=== PATIENT | female | born 1975 | race Caucasian/White ===

== ENCOUNTER → 2017-11-20 | Outpatient (CLI) | payer MEDICARE ==
[~2017-11-20] MED LIST: ACETAMINOPHEN-1 EAC1 PO; AMOXICILLIN 50500 M1 PO; COMPAZINE10 MG PO; DERMOPLAST SPRA56 ML; IBUPROFEN 600600 M1; KEFLEX500 MG PO; MACROBID 100 M100 M1 PO; MONISTAT 745 GM VG; NORCO 5-325 TA1 EACH; PHENERGAN 25 MG25 M1 PO; PRENATAL; PRENATAL COMPL1 EACH; PROZAC20 MG PO; REGLAN 10 MG TA10 MG PO; TRAZODONE HCL100 MG PO; TUCKS MEDICATE1 EAC1; ZOFRAN4 MG; ZPAK PO
== END ==
LOC: M.CT 15:00
DX: Z09 Encounter for follow-up examination after completed treatment for conditions other than malignant neoplasm (principal); N20.0 Calculus of kidney; N85.2 Hypertrophy of uterus; Z87.442 Personal history of urinary calculi

== ENCOUNTER 2019-07-02 21:22 | Emergency (ER) | payer OTHER ==
[~2019-07-02] VITALS: Ht 160 cm; Wt 57.1 kg
[2019-07-02 21:30] VITALS: BP 132/69
[2019-07-02] MEDS ORDERED: XOFLUZA20 MG PO (21:33)
[2019-07-02] MEDS ORDERED: TRAMADOL 50 MG50 MG PO (21:43)
== END 2019-07-02 21:48 | disposition home or self-care (01) ==
LOC: M.ERS 21:22
DX: B34.9 Viral infection, unspecified (principal); F17.210 Nicotine dependence, cigarettes, uncomplicated; Z98.890 Other specified postprocedural states; Z88.1 Allergy status to other antibiotic agents; Z88.0 Allergy status to penicillin; Z91.040 Latex allergy status

== ENCOUNTER 2019-08-27 11:03 | Emergency (ER) | payer OTHER ==
[~2019-08-27] VITALS: Ht 160 cm; Wt 57.1 kg
[~2019-08-27 11:03] MED LIST changes: +TRAMADOL 50 MG50 MG PO; +XOFLUZA20 MG PO
[2019-08-27] MEDS ORDERED: NORCO 5-325 TA1 EAC1 PO (11:33)
[2019-08-27] MEDS ORDERED: ZANAFLEX4 MG PO (11:33)
[2019-08-27] MEDS ORDERED: NAPROSYN500 MG PO (11:33)
[2019-08-27 11:41] VITALS: BP 132/92
== END 2019-08-27 11:42 | disposition left against medical advice (07) ==
LOC: M.ERS 11:03
DX: M54.5 Low back pain (principal); F17.210 Nicotine dependence, cigarettes, uncomplicated; Z98.890 Other specified postprocedural states; Z88.1 Allergy status to other antibiotic agents; Z88.0 Allergy status to penicillin; Z91.040 Latex allergy status

== ENCOUNTER 2019-10-07 13:01 | Emergency (ER) | payer OTHER ==
[~2019-10-07] VITALS: Ht 160 cm; Wt 61.7 kg
[~2019-10-07 13:01] MED LIST changes: +NAPROSYN500 MG PO; +NORCO 5-325 TA1 EAC1 PO; +ZANAFLEX4 MG PO
[2019-10-07 13:47] LABS: URINE BLOOD 3+ (Negative); URINE CLARITY CLOUDY; URINE COLOR RED; URINE GLUCOSE-RANDOM NEGATIVE (Negative); URINE KETONES NEGATIVE (Negative); URINE LEUKOCYTES-REFLEX 1+ (Negative); URINE NITRITE-REFLEX NEGATIVE (Negative); URINE PROTEIN 2+ (Negative); URINE SPECIFIC GRAVITY 1.025 (1.005-1.030); URINE UROBILINOGEN 0.2 E.U./dl (0.2-1.0)
[2019-10-07 13:49] LABS: ICTOTEST (BILI CONFIRMATORY) Negative (Negative); URINE BILIRUBIN 1+ (Negative)
[2019-10-07 13:54] LABS: SQUAMOUS 4-10 Moderate /LPF (0-3); URINE RBC >20 Many /HPF (0-2); URINE WBC-REFLEX None Seen /HPF (0-5)
[2019-10-07 13:55] LABS: BACTERIA-REFLEX None Seen /HPF (None Seen); CASTS None Seen /LPF (None Seen); CRYSTALS None Seen /LPF (None Seen); MUCUS 0-3 Light strn/LPF (None Seen)
[2019-10-07 14:00] LABS: ABSOLUTE BASOPHILS 0.1 thou/uL (0.0-0.2); ABSOLUTE EOSINOPHILS 0.5 thou/uL (0.0-0.7); ABSOLUTE LYMPHOCYTES 2.1 thou/uL (0.8-5.3); ABSOLUTE NEUTROPHILS 5.6 thou/uL (1.6-8.1); BASOPHILS 0.6 %; EOSINOPHILS 5.2 %; HEMOGLOBIN 12.4 gm/dL (12.0-15.0); MCH 28.1 pg (26.0-34.0); MCHC 33.4 g/dL (28.0-37.0); MONOCYTES 10.8 %; MPV 7.1 fl. (7.2-11.1); NUCLEATED RBCS 0 /100WBC; PLATELET COUNT* 407 thou/uL (150-400); POLYS 60.4 %; RDW-CV 16.2 % (10.5-14.5); WBC 9.2 thou/uL (4.0-11.0)
[2019-10-07 14:09] LABS: CALCIUM 8.5 mg/dL (8.5-10.1); CREATININE 0.6 mg/dL (0.6-1.3); POTASSIUM 3.7 mmol/L (3.5-5.1)
[2019-10-07 14:13] LABS: ALBUMIN 3.3 g/dL (3.4-5.0); TOTAL BILIRUBIN 0.2 mg/dL (<0.1-1.0); TOTAL PROTEIN 7.2 g/dL (6.4-8.2)
[2019-10-07 15:33] VITALS: BP 120/72
== END 2019-10-07 15:34 | disposition home or self-care (01) ==
LOC: M.ERS 13:01
PROVIDERS: Physician Assistant
DX: O20.0 Threatened abortion (principal); F17.210 Nicotine dependence, cigarettes, uncomplicated; Z98.890 Other specified postprocedural states; Z3A.00 Weeks of gestation of pregnancy not specified; Z91.040 Latex allergy status; Z88.0 Allergy status to penicillin; Z88.1 Allergy status to other antibiotic agents

== ENCOUNTER 2019-11-19 18:25 | Emergency (ER) | payer OTHER ==
[~2019-11-19] VITALS: Ht 160 cm; Wt 59.0 kg
[2019-11-19] MEDS ORDERED: CELEXA 20 MG TA20 MG PO (18:48)
[2019-11-19] MEDS ORDERED: ZANAFLEX4 MG PO (20:51)
[2019-11-19] MEDS ORDERED: IBUPROFEN 600600 M1 PO (20:51)
[2019-11-19] MEDS ORDERED: CENTANY30 GM TOP (20:51)
[2019-11-19] MEDS ORDERED: DOXYCYCLINE 10100 MG PO (21:06)
[2019-11-19 21:25] VITALS: BP 153/92
== END 2019-11-19 21:25 | disposition home or self-care (01) ==
LOC: M.ERS 18:25
DX: S09.90XA Unspecified injury of head, initial encounter (principal); S61.411A Laceration without foreign body of right hand, initial encounter; S16.1XXA Strain of muscle, fascia and tendon at neck level, initial encounter; S20.212A Contusion of left front wall of thorax, initial encounter; S20.211A Contusion of right front wall of thorax, initial encounter; S70.02XA Contusion of left hip, initial encounter; S70.01XA Contusion of right hip, initial encounter; S00.83XA Contusion of other part of head, initial encounter; S60.211A Contusion of right wrist, initial encounter; F17.210 Nicotine dependence, cigarettes, uncomplicated; Z98.890 Other specified postprocedural states; Z91.040 Latex allergy status; Z88.0 Allergy status to penicillin; Z88.1 Allergy status to other antibiotic agents; Y04.0XXA Assault by unarmed brawl or fight, initial encounter; Y93.89 Activity, other specified; Y92.89 Other specified places as the place of occurrence of the external cause; Y99.8 Other external cause status

== ENCOUNTER 2021-02-20 02:31 | Emergency (ER) | payer OTHER ==
[~2021-02-20] VITALS: Ht 160 cm; Wt 64.9 kg
[~2021-02-20 02:31] MED LIST changes: +CELEXA 20 MG TA20 MG PO; +CENTANY30 GM TOP; +DOXYCYCLINE 10100 MG PO; +IBUPROFEN 600600 M1 PO
[2021-02-20 02:45] VITALS: BP 159/98
[2021-02-20] MEDS ORDERED: HYDROXYZINE HCL25 M2 PO (02:48)
[2021-02-20] MEDS ORDERED: PROZAC 10 MG CA10 MG PO (02:48)
[2021-02-20] MEDS ORDERED: CLARITIN10 M3 PO (03:07)
[2021-02-20] MEDS ORDERED: PROAIR HFA8.5 GM INH (03:07)
[2021-02-20] MEDS ORDERED: FLONASE 0.05%50 MCG NARES (03:07)
== END 2021-02-20 03:30 | disposition home or self-care (01) ==
LOC: M.ERS 02:31
DX: R09.81 Nasal congestion (principal); R05 Cough; F17.210 Nicotine dependence, cigarettes, uncomplicated; J45.909 Unspecified asthma, uncomplicated; Z88.1 Allergy status to other antibiotic agents; Z88.0 Allergy status to penicillin; Z91.040 Latex allergy status; Z79.2 Long term (current) use of antibiotics